=== PATIENT | male | born 2000 | race Caucasian/White ===

== ENCOUNTER 2024-06-03 10:40 | Emergency (ER) | payer BC, SELFPAY ==
--- NOTE | ~2024-06-03 | XR_ITS ---
EXAMINATION: XR chest 2V DATE: 06/03/2024 13:49 INDICATION: Pleuritic right upper back pain TECHNIQUE: PA and lateral views of the chest were obtained. COMPARISON: None FINDINGS: The lungs are clear with no focal airspace opacities, pulmonary edema, pleural effusion or pneumothor ax. The cardiomediastinal silhouette is normal. Visualized bones and soft tissues are unremarkable. IMPRESSION: 1. No acute cardiopulmonary disease. Reviewed, dictated and finalized at location A.
[2024-06-03 11:49] VITALS: BP 139/83; PULSE 61; RESP 20; TEMP 36.4; O2SAT 97
--- NOTE | 2024-06-03 12:49 | ED.BACK ---
HPI - Back Pain/Injury General Chief Complaint: Back Pain/Injury Stated Complaint: back pain Time Seen by Provider: 06/03/24 11:57 History of Present Illness HPI Narrative: Patient is a 23-year-old male presenting with right upper back pain. States that he woke from sleep with severe stabbing pain in his right upper back. Is worsened with a breath. States that he feels scared to take a full breath because it makes the pain worse. No chest pain. States that he just got home from vacation, had a [address] night[address] States that his mom has a history of pulmonary emboli as so this was what he was concerned about. No leg swelling. No injuries. No midline neck or back pain. No numbness or weakness. Related Data Allergies Allergy/AdvReac Type Severity Reaction Status Date / Time No Known Allergies Allergy Verified 06/03/24 11:39 Review of Systems Review of Systems: All systems reviewed & are unremarkable except as noted in HPI and below Exam Narrative: GENERAL: Well-appearing, well-nourished, and in no acute distress. HEAD: Normocephalic, atraumatic. EYES: PERRLA and EOMI. ENT: Grossly unremarkable NECK: Supple. BACK: no midline tenderness, no tenderness over R upper back CHEST: Clear to auscultation. No respiratory distress. HEART: Regular rate and rhythm ABDOMEN: Soft, nontender, nondistended EXTREMITIES: Normal range of motion. No edema. SKIN: Warm, dry, no rash. NEURO: No focal deficits. Alert and oriented x3. PSYCH: Normal mood and affect. Course Vital Signs Vital signs: Vital Signs Temperature 97.6 F 06/03/24 11:49 Pulse Rate 61 06/03/24 11:49 Respiratory Rate 20 06/03/24 11:49 Blood Pressure 139/83 06/03/24 11:49 Pulse Oximetry 97 06/03/24 11:49 Oxygen Delivery Room Air 06/03/24 11:49 Temperature 97.6 F 06/03/24 11:49 Pulse Rate 61 06/03/24 11:49 Respiratory Rate 20 06/03/24 11:49 Blood Pressure 139/83 06/03/24 11:49 Pulse Oximetry 97 06/03/24 11:49 Oxygen Delivery Room Air 06/03/24 11:49 MDM - Back Pain/Injury MDM Narrative Medical decision making narrative: 23-year-old male presenting with right upper back pain that is worsened with deep breathing. Vitals are within normal limits. Exam remarkable for the above. Blood work is unremarkable. D-dimer is undetectable. Chest x-ray with no acute abnormalities. Re-evaluation, the patient states that he is feeling better. Feel he is safe for outpatient management. Will send in for Flexeril, advised Tylenol and ibuprofen. Recommend PCP follow-up. Appropriate return precautions given. Patient is agreeable this plan. Discharged in stable condition. Differential Diagnosis Differential diagnosis: Likely other (Shoulder pain, back pain, muscle spasm, pneumothorax, PE) Medical Records Attestation: I reviewed the patient's medical records. Lab Data Attestation: I reviewed the patient's lab results. 06/03/24 12:58 06/03/24 12:58 Labs: Lab Results 06/03/24 Range/Units 12:58 WBC 8.4 (4.5-10.0) K/mm3 RBC 5.58 (4.6-6.20) M/mm3 Hgb 15.7 (14.0-18.0) g/dL Hct 46.0 (42.0-52.0) % MCV 82.4 (80-100) fl MCH 28.1 (26-34) pg MCHC 34.1 (32-36) g/dl RDW 12.2 (11.5-14.5) % Plt Count 259 (150-375) k/mm3 MPV 9.2 (7.4-10.4) fl Immature Gran % (Auto) 0.1 (0-0.5) % Neut % (Auto) 65.1 (45.5-73.1) % Lymph % (Auto) 25.0 (18.3-44.2) % [place] % (Auto) 8.4 (2.6-8.5) % Eos % (Auto) 1.2 (0-4.4) % Baso % (Auto) 0.2 (0.2-1.2) % Lymph # (Auto) 2.11 (0.9-3.2) K/mm3 [place] # (Auto) 0.7 H (0.1-0.6) K/mm3 Eos # (Auto) 0.1 (0-0.3) K/mm3 Baso # (Auto) 0.0 (0.0-0.1) K/mm3 Abs Immat Gran (auto) 0.01 (0.00-0.031) K/mm3 Absolute Neuts (auto) 5.5 (1.3-6.7) K/mm3 Absolute Nucleated RBC 0.000 (0.0-0.012) K/mm3 Nucleated RBC % 0.0 (0.0-0.2) % D-Dimer < 0.22 (<0.48) ug/mL Sodium 138 (137-145) mmol/L Potassium 4.1 (3.4-5.0) mmol
[2024-06-03 13:04] LABS: Basophils Percent Auto 0.2 % (0.2-1.2); Eosinophils Absolute Auto 0.1 K/mm3 (0-0.3); Eosinophils Percent Auto 1.2 % (0-4.4); Hemoglobin 15.7 g/dL (14.0-18.0); Immature Granulocyte Absolute 0.01 K/mm3 (0.00-0.031); Immature Granulocyte Percent A 0.1 % (0-0.5); Lymphocytes Absolute Auto 2.11 K/mm3 (0.9-3.2); Mean Corpuscular HGB Conc 34.1 g/dl (32-36); Mean Corpuscular Hemoglobin 28.1 pg (26-34); Mean Corpuscular Volume 82.4 fl (80-100); Mean Platelet Volume 9.2 fl (7.4-10.4); Monocytes Absolute Auto 0.7 K/mm3 (0.1-0.6); Monocytes Percent Auto 8.4 % (2.6-8.5); Neutrophils Absolute Auto 5.5 K/mm3 (1.3-6.7); Neutrophils Percent Auto 65.1 % (45.5-73.1); Platelet Count Result 259 k/mm3 (150-375); Red Blood Count 5.58 M/mm3 (4.6-6.20); Red Cell Distribution Width 12.2 % (11.5-14.5); White Blood Count 8.4 K/mm3 (4.5-10.0)
[2024-06-03] MEDS: SODIUM CHLORIDE 0.9% IV 1,000 ML 999 ML IV CONT (13:05)
[2024-06-03] MEDS: CYCLOBENZAPRINE HCL 10 MG TABLET PO (13:06)
[2024-06-03] MEDS: KETOROLAC 15 MG/ML VIAL (*BKC) IV PUSH (13:06)
[2024-06-03] MEDS: ACETAMINOPHEN 500 MG TABLET 1000 MG PO (13:06)
[2024-06-03 13:12] LABS: Anion Gap 9 mmol/L (4-12); Blood Urea Nitrogen 8 mg/dL (9-20); Calcium 9.7 mg/dL (8.4-10.2); Carbon Dioxide 27 mmol/L (22-30); Chloride 102 mmol/L (98-107); Estimated CRCL calculation 140 ml/min; Estimated Glomerular Filt Rate > 60; Glucose 97 mg/dL (65-110); Potassium 4.1 mmol/L (3.4-5.0); Sodium 138 mmol/L (137-145)
[2024-06-03 13:19] LABS: D Dimer < 0.22 ug/mL (<0.48)
== END 2024-06-03 14:58 | disposition home or self-care (01) ==
PROVIDERS: Emergency Provider Emergency Medicine
DX: M54.9 Dorsalgia, unspecified (principal)
CPT/HCPCS: 36415; 71046; 80048; 85025; 85380; 96361; 96374; 99284; A9270; J1885; J7030

== ENCOUNTER 2025-02-04 11:47 | Emergency (ER) | payer BC, SELFPAY ==
[2025-02-04 12:06] VITALS: BP 138/96; PULSE 86; RESP 16; TEMP 36.4; O2SAT 100
--- OUTSIDE RECORDS SUMMARY | 2025-02-04 12:10 | XMS_ITS | Clinical Summary ---
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 [employer] Gender Identity Not on file Sexual Orientation Not on file Plan of Treatment Health Maintenance Due Date Last Done Comments Annual Physical 2002 HPV Vaccines (1 - Male 3-dos e series) 2014 Hepatitis C 2017 DTaP, Tdap and Td Vaccines ( 1 - Tdap) 2018 Hepatitis B Vaccines (1 of 3 - 19+ 3-dose series) 2018 COVID-19 Vaccine ( - 2023-2 5 season) 2024 Meningococcal B Vaccine Aged Out No l onger eligible based on patient's age to complete this topic Meningococcal Vaccine Aged Out No rusty kirk eligible based on patient's age to complete this topic Pneumococcal Vaccine: Pediat rics (0 to 5 Years) and At-Risk Patients (6 to 49 Years) Aged Out No longer eligible b ased on patient's age to complete this topic RSV Immunizations Under 20 Months Aged Out No longer eligible based on patient's age to complete this topic
--- OUTSIDE RECORDS SUMMARY | 2025-02-04 12:10 | XMS_ITS | Continuity of Care Document ---
Author Organization [employer] Address [address] [place] [address] Phone Care Team Providers Care Postdoctoral Scholar Name Role Phone Dario Hannah MD Unavailable Unavailable Allergies, Adverse Reactions, Alerts Substance Reaction Status Criticality No Known Allergies Active No Inform ation Medications Medication Instructions Dosage Effective Dates (start - stop) Status Comments amoxicillin 875 mg-potassium clavulanate 125 mg tablet take 1 tablet by oral route 2 times every day 1 tablet - Active Procedures Procedure Date OFFICE/OUTPATIENT VISIT, EST OFFICE/OUTPATIENT VISIT, EST OFFICE/OUTPATIENT VISIT, EST OFFICE/OUTPATIENT VISIT, NEW OFFICE/OUTPATIENT VISIT, EST RAPID STREP Rapid COVID OFFICE/OUTPATIENT VISIT, EST OFFICE/OUTPATIENT VISIT, EST OFFICE/OUTPATIENT VISIT, EST OFFICE/OUTPATIENT VISIT, EST OFFICE/OUTPATIENT VISIT, EST OFFICE/OUTPATIENT VISIT, EST OFFICE/OUTPATIENT VISIT, EST OFFICE/OUTPATIENT VISIT, EST OFFICE/OUTPATIENT VISIT, EST OFFICE/OUTPATIENT VISIT, EST PREV VISIT, EST, AGE 12-17 OFFICE/OUTPATIENT VISIT, EST OFFICE/OUTPATIENT VISIT, EST URINALYSIS NONAUTO W/O SCOPE OFFICE/OUTPATIENT VISIT, EST OFFICE/OUTPATIENT VISIT, EST OFFICE/OUTPATIENT VISIT, EST OFFICE/OUTPATIENT VISIT, EST OFFICE/OUTPATIENT VISIT, EST OFFICE/OUTPATIENT VISIT, EST OFFICE/OUTPATIENT VISIT, EST OFFICE/OUTPATIENT VISIT, EST OFFICE/OUTPATIENT VISIT, EST OFFICE/OUTPATIENT VISIT, EST OFFICE/OUTPATIENT VISIT, EST OFFICE/OUTPATIENT VISIT, EST Advance Directives Directive Yes / No Effective Date File Name No Information Encounters Encounter Description Practice Location Reason(s) For Visit Diagnoses Date Provider Providers Copied on Encounter OFFICE/OUTPA TIENT VISIT, [facility], [address] [place] [address], [facility], tel:[phone] [facility] COUGH (chief complaint)S ORE THROAT (chief complaint)H PI (chief complaint) Acute pharyngitis 3 Camden Bishop. [address] [place] [address], [place]. tel: [phone] OFFICE/OUTPA TIENT VISIT, [facility], [address] [place] [address], [facility], tel: [phone] [facility] COUGH (chief complaint)H PI (chief complaint) EpistaxisEnla rged lymph nodes, unspecified 3 Camden Bishop. [address] [place] [address], [place]. tel: OFFICE/OUTPA TIENT VISIT, [facility], [address] [place] [address], [facility], [place] tel:[phone] [facility] CHECK UP (chief complaint) Chest wall discomfortEnl arged lymph nodes, unspecified 2 Camden Bishop. [address] [place] [address], [address], [place]. tel:[phone] OFFICE/OUTPA TIENT VISIT, [facility], [address] [place] [address], [facility], [place] [phone] [facility] CHEST DISCOMFORT (chief complaint)S OB (chief complaint)C HEST POPPING (chief complaint) Chest wall discomfort Jun- 2 Elkin Aguayo. [address] [place] [address], [facility], . tel:[phone] OFFICE/OUTPA TIENT VISIT, [facility], [address] [place] [address], [facility], [phone] [facility] EST CARE (chief complaint)H PI (chief complaint) Enlarged lymph nodes, unspecified 2 Camden Bishop. [address] [place] [address], [facility], . tel:[phone] OFFICE/OUTPA TIENT VISIT, [facility], [address] [place] [address], [facility], tel:[phone] [facility] covid sx (chief complaint) Acute pharyngitis, unspecifiedCo ntact With And (suspected) Exposure To COVID-19Acute upper respiratory infection, unspecified 1 Edward Atwood. [address] [place] [address], [facility] [place], . [phone] OFFICE/OUTPA TIENT VISIT, [facility], [address] [place] [address], [facility], [phone] [facility] BUG IN EAR (chief complaint) Foreign body in ear, unspecified ear, subsequent encounter 1 Edward Atwood. [address] [place] [address], [facility] [place], . tel:[phone] OFFICE/OUTPA TIENT VISIT, [facility], [address] [place] [address], [facility], [place] [phone] [facility] CHECK UP (chief complaint) Painful breathingDOE (dyspnea on exertion) 1 Ronaldo Edwards. [address] [place] [address], [facility] [place], . tel:[phone] OFFICE/OUTPA TIENT VISIT, [facility], [address] [place] [address], [facility], tel: [phone] [facility] Sore throat (chief complaint) Acute pharyngitis, unspecified etiologyAcute sinusitis 9 Lorenzo Vázquez. [address] [place] [address], [address] [place] [address]. tel: [phone] OFFICE/OUTPA TIENT VISIT, [facility], [address] [place] [address], [facility], tel: [phone] [facility] Sore throat (chief complaint) Acute pharyngitis, unspecified etiologyAcute maxillary sinusitis, unspecified 9 Mingo Johnson. [address] [place] [address]. tel: [phone] OFFICE/OUTPA TIENT VISIT, [facility], [address] [place] [address], [facility], tel: [phone] [facility] Sore throat (chief complaint) Acute pharyngitis, unspecified etiology 0 8 Lorenzo Vázquez. [address] [place] [address], [facility], . tel: [phone] OFFICE/OUTPA TIENT VISIT, [facility], [address] [place] [address], [facility], tel: [phone] [facility] FELL JUMPMING FOR FRISBI (chief complaint)C OLLIDED WITH ANOOTHER CHILD (chief complaint) Unsp injury of unsp msl/tnd at ank/ft level, r foot, initUnspecifi ed sprain of right foot, initial encounter 8 Elkin Aguayo. [address] [place] [address], [facility], . tel: [phone] OFFICE/OUTPA TIENT VISIT, [facility], [address] [place] [address], [facility], tel: [phone] [facility] SORE THROAT (chief complaint) Sore throatRhiniti s, unspecified type 2 8 Lorenzo Vázquez. [address] [place] [address], [address], [place]. tel:[phone] OFFICE/OUTPA TIENT VISIT, [facility], [address] [place] [address], [address], [place] tel:[phone] [facility] Cough. (chief complaint)S ore throat (chief complaint) Lymphadenopat hyInfluenza B 6201 7 Corrina Yecenia. [address] [place], [address], [place]. tel:[phone] OFFICE/OUTPA TIENT VISIT, [facility], [address] [place] [address], [address], [place] tel:[phone] [facility] Cough (chief complaint) Influenza 2 7 Annalisa Funes. [address] [place] [address], [address], [place]. tel:[phone] PREV VISIT, [facility], AGE 12-17 [facility], [address] [place] [address], [address], [place] tel:[phone] [facility] shot/sports phys. (chief complaint) Encounter for examination for participation in sport 7 Erica Aimee. [address] [place] [address], [address], [place]. tel:[phone] OFFICE/OUTPA TIENT VISIT, [facility], [address] [place] [address], [address], [place] tel:[phone] [facility] Sore throat (chief complaint) Left otitis media, unspecified chronicity, unspecified otitis media type 0 7 Corrina Yecenia. [address] [place], [address], [place]. tel:[phone] OFFICE/OUTPA TIENT VISIT, [facility], [address] [place] [address], [address], [place] tel:[phone] [facility] Sore throat (chief complaint) Otitis media, unspecified, left ear 9201 6 Corrina Yecenia. [address] [place], [address], [place]. tel:[phone] [facility], [address] [place] [address], [address], [place] tel:[phone] [facility] sports physical (chief complaint) Sports physical exam 6 Ronaldo Edwards. [address] [place] [address], [facility] [place], [place]. tel:[phone] OFFICE/OUTPA TIENT VISIT, [facility], [address] [place] [address], [facility], tel:[phone] [facility] TOE INJURY (chief complaint) Ingrown nailIrritant contact dermatitis due to plants, except food 6 Edward Atwood. [address] [place] [address], [facility] [place], [place]. tel:[phone] OFFICE/OUTPA TIENT VISIT, [facility], [address] [place] [address], [facility], tel:[phone] [facility] Cold symptoms (chief complaint) AnemiaAcute upper respiratory infection, unspecified 6 Edward Atwood. [address] [place] [address], [facility] [place], [place]. tel:[phone] OFFICE/OUTPA TIENT VISIT, [facility], [address] [place] [address], [facility], [place] tel: [phone] [facility] Sore throat (chief complaint) Sore throat 5 Salbador Almaguer. [address] [place], [address]. tel:[phone] OFFICE/OUTPA TIENT VISIT, [facility], [address] [place] [address], [facility], [place] tel: [phone] [facility] Sports PE (chief complaint) General medical exam for sports competition 5 Ronaldo Edwards. [address] [place] [address], [facility] [place], [place]. tel:[phone] OFFICE/OUTPA TIENT VISIT, [facility], [address] [place] [address], [facility], [place] tel:[phone] [facility] ring worm (chief complaint) Tinea corporisAller gic rhinitis 5 Ronaldo Edwards. [address] [place] [address], [facility] [place], . tel:[phone] OFFICE/OUTPA TIENT VISIT, [facility], [address] [place] [address], [facility], tel: [phone] [facility] rash (chief complaint) ImpetigoTinea corporis Feb-2 3 5 No Information OFFICE/OUTPA TIENT VISIT, [facility], [address] [place] [address], [facility], tel: [phone] [facility] Cold symptoms (chief complaint) URI, acute 6 5 No Information OFFICE/OUTPA TIENT VISIT, [facility], [address] [place] [address], [facility], tel: [phone] [facility] Cough (chief complaint)F ever (chief complaint) URI, acuteAllergic rhinitis Jul-0 4 Erica Aimee. [address] [place] [address], [facility], . tel:[phone] OFFICE/OUTPA TIENT VISIT, [facility], [address] [place] [address], [facility], tel: [phone] [facility] SORE THROAT (chief complaint) URI, acute 4 Erica Aimee. [address] [place] [address], [facility], . tel:[phone] OFFICE/OUTPA TIENT VISIT, [facility], [address] [place] [address], [facility], tel: [phone] [facility] COLD SYMPTOMS (chief complaint) Bronchitis, AcuteAcute maxillary sinusitis 4 Longmeyer Elizabeth. [address] [place] [address], [place]. tel:[phone] OFFICE/OUTPA TIENT VISIT, [facility], [address] [place] [address], [facility], tel:[phone] [facility] cough (chief complaint) Bronchitis, Acute 3 No Information OFFICE/OUTPA TIENT VISIT, [facility], [address] [place] [address], [facility], tel:[phone] [facility] wheezing (peds) (chief complaint)c ough (chief complaint)c old symptoms (chief complaint) Allergy, unspecified, not elsewhere classifiedUpp er Respiratory Infection, AcuteRight otitis media [address], [facility], . tel:[phone] Family History Family Member Type Diagnosis Age At Onset Mother Problem (finding) PE Father Problem (finding) No Family hist ory of No history of Diabetes mellitus Mother Problem (finding) No Family hist ory of No history of Cancer Mother Problem (finding) No Family hist ory of No history of Diabetes mellitus Father Problem (finding) No Family hist ory of No history of Cancer Immunizations Vaccine Date Status Comments meningococcal ACWY vaccine, unspecified formulation administered Source: Other Re gistry hepatitis A vaccine, pediatric/adolescent dosage, 2 dose schedule administered Source: Other Regist ry varicella virus vaccine administered Sour ce: Other Registry Meningococcal, MCV4, unspeci fied conjugate formulation(groups A, C, Y and W-135) administered Source: Other Regist ry hepatitis A vaccine, pediatric/adolescent dosage, 2 dose schedule administered Source: Other Regist ry Tdap administered Source: Other R egistry diphtheria, tetanus toxoids and acellular pertussis vaccine administered Source: Othe r Registry poliovirus vaccine, inactivated administe red Source: Other Registry measles, mumps and rubella v irus vaccine administered Source: Other Regist ry diphtheria, tetanus toxoids and acellular pertussis vaccine administered Source: Othe r Registry varicella virus vaccine administered Sour ce: Other Registry hepatitis B vaccine, pediatr ic or pediatric/adolescent dosage administered Source: Othe r Registry poliovirus vaccine, inactivated administe red Source: Other Registry measles, mumps and rubella v irus vaccine administered Source: Other Regist ry Hib (HbOC) administered Source: Other R egistry diphtheria, tetanus toxoids and acellular pertussis vaccine administered Source: Othe r Registry diphtheria, tetanus toxoids and acellular pertussis vaccine administered Source: Othe r Registry hepatitis B vaccine, pediatr ic or pediatric/adolescent dosage administered Source: Othe r Registry poliovirus vaccine, inactivated administe red Source: Other Registry Hib (HbOC) administered Source: Other R egistry DTaP (younger than 7 yrs) administered So urce: Other Registry Hep B (ped/adol, 3 dose) administered Meseret rce: Other Registry poliovirus vaccine, inactivated administe red Source: Other Registry Hib (HbOC) administered Source: Other R egistry Payers Payer name Insurance type Covered green party ID Authoriza tion(s) [facility] [id number] Social History Type Description Quantity Date Captured Comments Alcohol Use Details beer 1 beer occasionally 2022 Caffeine Use Details soda and coffee > 32oz per day Tobacco Use Status Never smoked tobacco 2022 Smoking Status Never smoker Sex Male Vital Signs Date / Time: Height Weight BMI Pulse Rate Blood Pressure Temperature Respiratory Rate Body Surface Area Head Circumference Head Circ. Percentile Wt./Balbir. Percentile BMI percentile Pulse Ox Inhaled Ox 3:10 PM 69.00 in 70.579 kg (155.60 lbs) 22.9 8 kg/m eter (2) 92 /min 122/85 mm[Hg] 99.70 F 20 /min 96 % Chief Complaint And Reason For Visit From encounter dated '12/16/2022 13:03'. COUGH (chief complaint) SORE THROAT (chief complaint) HPI (chief complaint). Description: Patient with symptoms for approximately 4 days. Worsening sore throat over this time. No definite exposure to strep that he knows of. Positive fevers and chills with temps greater than 100. Positive cough producing green sputum. Positive postnasal drainage. Positive head congestion and frontal headache. Mild nausea. He has been taking [id number] Advil. Reason For Referral Reason For Referral No Information Plan Of Treatment Date Type Action Status Goal Influenza vaccine. Due on Ma due Goal Td vaccine. Due on due Goal Depression scree maryam. Due on due Goal Unhealthy drug u se screening. Due on due Goal Tdap due Goal Hepatitis C scre ening. Due on due Goal Td vaccine. Due on due Goal Influenza vaccine. Due on due Goal Depression scree maryam. Due on due Goal Tdap due Goal Td vaccine. Due on due Goal Influenza vaccine. Due on No due Goal Tdap due Goal Depression scree maryam. Due on due Goal Td vaccine. Due on due Goal Depression scree maryam. Due on due Goal Tdap due Goal Influenza vaccine. Due on Oc due Goal Tdap due Goal Td vaccine. Due on due Goal Depression scree maryam. Due on due Goal Influenza vaccine. Due on Au due Referral Ordered: US XTR NON-VASC LMTD Left neck ordered Referral Ordered: X-RAY EXAM CHEST 2 VIEWS HEARS POPPING NOISE- MID ordered Referral Ordered: X-RAY EXAM OF FOOT ordered Referral Ordered: CHEST X-RAY - 2 View Frontal Lateral Bilateral ordered Patient Education Learning About the Safe Use of Antibi~ completed Patient Education Viral Respiratory Infec tion: Care Ins~ completed Patient Education Object in the Ear: Care Instructions completed Patient Education Shortness of Breath: Ca re Instructions completed Patient Education Sore Throat: After Your Visit completed Patient Education Sinus Infection Sinus itis Sinus i~ completed Patient Education Sore Throat Pharyngit is Sore Thro~ completed Future Order: Lab Order RAPID ST REP ([id number]), Sent on: Sent History Of Present Illness Encounter Date Complaint History Of Prese nt Illness COUGH HPI Patient with sym ptoms for approximately 4 days. Worsening sore throat over this time. No definite exposure to strep that he knows of. Positive fevers and chills with temps greater than 100. Positive cough producing green sputum. Positive postnasal drainage. Positive head congestion and frontal headache. Mild nausea. He has been taking [id number] Advil. SORE THROAT HPI Patient states f or the last 3 days he has noticed some blood in his saliva when he spits it out in the morning. He does not notice any blood in any other time of the day. He has had some mild postnasal drainage. He has had 2 nosebleeds this past month which is unusual for him. No unusual headaches. No fatigue. He continues to have the swollen lymph nodes in the left posterior neck which she states are about the same. He just seems very concerned about the lymph nodes and now the blood. He states he is googled it and is concerned he may have some sort of a blood cancer. No abnormal bruising or rash. No hematuria. No blood in his stools. COUGH Additional infor vicky: Has blood in sputum when getting up in am. CHECK UP Patient here jus t following up from his walk-in clinic visit a month ago. His chest symptoms have completely resolved. Lymph node in the back part of his neck is down to very small size right now. He has no new concerns or complaints. He was told by his last doctor that he might need blood work every year but given his good health and no chronic illnesses I do not see why he would need any blood work and this was explained to him. CHEST POPPING PT PRESENTS WITH CHEST POPPING FOR ABOUT ONE YEAR. ALSO C/O EPIGASTRIC PAIN AND INDIGESTION SINCE TUESDAY. CHEST DISCOMFORT The patient pre sents with a complaint of CHEST DISCOMFORT. The symptoms began 3 days ago. Additional information: PT STATES THAT HE HAS HAD CHEST TIGHTNESS AND DISCOMFORT SINCE TUESDAY. SOB PT PRESENTS WITH SOB SINCE TUESDAY. CHEST POPPING (comments) HX OF VAPING, LAST- VAPE WAS ONE WEEK [employer] [facility] [employer] [facility] LYMPHNODE HAS NOT CHANGED IN SIZE HPI Patient is here to establish care. He does not really have a PCP he has improved in his overall health. He has no chronic medical problems and is on no medications. Patient did not use a vaping device but quit about 1 year ago. He does occasionally smoke marijuana.No significant family history except does have a grandfather had leukemia.Patient is here to have a nodule on his posterior left neck checked. The present for about 3 to 4 months. It has not increased in size. It is not tender. It has not moved around. He has no lumps or nodules anywhere else in his neck, armpits or groin area.He otherwise feels completely fine. He has no fatigue. He has no unusual shortness of breath. No problems with exertion. It simply basketball for 3 hours the other day with no problems. No GI symptoms. No urinary or bowel complaints. No rashes or skin lesions. EST CARE PT PRESENTS TO [facility].PT STATES THAT HE HAS A KNOT JUST TO THE LEFT OF CENTER ON HIS UPPER NECK. THINKS HE HAS HAD IT ABOUT 4 MONTHS. covid sx Pt presents wit complaints of sinus pressure, cough, sore throat, and fatigue since yesterday. Pt is not vaccinated. Pt states he possible had positive exposure, but unsure. BUG IN EAR Pt. was playing golf Tuesday and felt and bug fly into his left ear. Went to the ER and they numbed his ear, could not get anything out, then tried flushing the insect out. The doctor went in with forceps and still did not get the bug out. His ear would be bloody when he would rinse out the eardrops. That stopped yesterday (Tuesday) CHECK UP Patient has been screened for CoVid 19. He answered no to all the questions asked. His temperature when initially evaluated was ----98.1Patient states that about a week ago, he was playing basketball with friends. He suddenly had problems with painful, somewhat burning sensation in his chest when he takes deep breaths. Patient states that he rested and the symptoms have abated. Patient has a well-known history of allergic rhinitis with several episodes of upper respiratory infection in the past. He was never diagnosed to have asthma. He had use an albuterol inhaler in the past. Patient also noted some dyspnea on exertion recently. Denies any chest pain, no diaphoresis, no other symptoms. He is a healthy young man with no history of cigarette use, no history of asthma. We discussed obtaining a chest x-ray and pulmonary function tests with methacholine challenge. Albuterol inhaler was refilled on today's visit. Sore throat Sore throat (comments) Brian jackson presents with c/o worsening sore throat and pain with swallowing for the past 4 days. He was seen in our clinic on 07/23/2019 and prescribed Amoxicillin 500mg PO BID. He did not start the course until 07/26/19, and has been taking it since. He has had fever (Tmax 101), cough, nasal congestion, headache, and fatigue. He has had no vomiting or diarrhea. He is taking OTC Mucinex DM for the cough and congestion, and feels this is slightly helping. Sore throat Onset: 1 Day. Sy mptoms are associated with history of allergies. Symptoms are not associated with exposure to strep and history of asthma. Associated symptoms include chills/rigors, cough, fatigue and nasal congestion. Pertinent negatives include fever, otalgia or wheezing. Sore throat Onset: 1 Day ago . The severity of the problem is mild and has worsened. The symptoms are persistent. Symptoms are not associated with exposure to strep, history of allergies, history of asthma, recent cold, recent travel, sick contacts at school, sick family member or smoker. Aggravating factors include exertion and lying down. Symptoms are not aggravated by allergens, cold air or smoke. Denies relieving factors. Associated symptoms include cough, fatigue, headache, nasal congestion, pharyngitis, postnasal drainage and sinus pressure. Pertinent negatives include chills/rigors, decreased appetite, decreased fluid intake, decreased urine output, difficulty sleeping, dyspnea, facial pain, fever, hemoptysis, myalgia, otalgia, rash, rhinitis, sputum, tooth pain and wheezing. FELL JUMPMING FOR FR ISBI (comments) HAS RIGHT FOOT PAIN/SWELLINGINJURY OCCURED ONE HR PTANO ACHILLES,KNEE OR HIP PAIN FELL JUMPMING FOR FRISBI Pt pres ents with right foot injury that took place participating in physical education at [facility]. The incident occurred about 12:30PM today. Pt states he jumped to catch a frisbee and his right foot got caught between two other players. Pt states he heard multiple pops coming from the right foot. Pt states he cannot put any weight on his right foot and has decreased ROM. There is some swelling to the right foot, but no bruising yet. COLLIDED WITH ANOOTHER CHILD SORE THROAT (comments) Brian jackson presents with c/o sore throat that began yesterday. He also reports runny nose. Denies cough, headache, fever, and chills. States he was exposed to strep throat this week at school. SORE THROAT Onset: 1 Day ago . The severity of the problem is mild and has worsened. The symptoms are persistent. Symptoms are associated with sick contacts at school. Symptoms are not associated with exposure to strep, history of allergies, history of asthma, recent cold, recent travel, sick family member or smoker. Denies aggravating factors. Denies relieving factors. Associated symptoms include pharyngitis. Pertinent negatives include chills/rigors, cough, decreased appetite, decreased fluid intake, decreased urine output, difficulty sleeping, dyspnea, facial pain, fatigue, fever, headache, hemoptysis, myalgia, nasal congestion, otalgia, postnasal drainage, rash, rhinitis, sinus pressure and wheezing. Sore throat Cough. Patient states patrick kahn has been treated with Tamiflu about 3 weeks ago but is still not feeling well. He has a sore throat and sinus pain with cough and congestion. Also fatigue. Cough Onset: 1 day ago . The patient describes the cough as productive. It occurs persistently. The problem has become gradually worse. There are no aggravating factors. There are no relieving factors. Associated symptoms include chills, cough, fatigue, fever, nasal congestion and post-nasal drainage. Pertinent negatives include dyspnea, dyspnea on exertion, epistaxis, heartburn, hemoptysis, hoarseness, night sweats, pleuritic pain, rhinitis, rhinorrhea, sinus pressure, sore throat, weight loss and wheezing. The patient has a history of allergies. The patient does not have a history of asthma. shot/sports phys. pt presnts elizabeth lockwood for school physicalThe patient presents for his sports physical today. His mother has his vaccine record with him she thinks he is due for a meningococcal booster. His immunization record will be updated in the system. Sore throat Onset: 2 Days ag o. The severity of the problem is moderate and has worsened. The symptoms are persistent. Symptoms are associated with history of allergies. Symptoms are not associated with exposure to strep, history of asthma, sick contacts at school, sick family member or smoker. Denies aggravating factors. Denies relieving factors. Associated symptoms include difficulty sleeping, headache, otalgia (left), pharyngitis and postnasal drainage. Pertinent negatives include chills/rigors, cough, decreased appetite, decreased fluid intake, decreased urine output, dyspnea, facial pain, fatigue, fever, hemoptysis, myalgia, nasal congestion, rash, rhinitis, sinus pressure, sputum, tooth pain and wheezing. Sore throat (comments) Pt presen ts to the clinic with complaints of a sore throat. PT states that the sx have been ongoing for approx 2 days. Pt denies fever, chills, n,v,d. Pt states he has not taken anything for the pain. Pt denies neck pain or body aches. PT denies being around anyone that is ill at this time. Sore throat Onset: 5 Days ag o. Symptoms are not associated with exposure to strep, sick contacts at school or sick family member. Denies aggravating factors. Denies relieving factors. Associated symptoms include fatigue, headache and pharyngitis. Pertinent negatives include chills/rigors, cough, fever, myalgia, nasal congestion, otalgia, postnasal drainage, rash and sinus pressure. sports physical Patient is here for a sport physical A very active individual, 15 yo M. Has good diet and exercise. Has good exercise tolerability, stamina. Denies any abnormal shortness of breath, palpitation nor syncopal episodes. Past medical, social and family history reviewed. TOE INJURY Pt presents with his mother today with complaints of a left big toe injury. Pt states his toe got stepped on a few weeks ago and the nail got pushed into the side of the toe. Pt states the toe is swollen, red, and painful. Cold symptoms (comments) PT atte mpted to given blood within the last month and was deferred. His mother would like his hemoglobin to be checked . he also complains that he is frequently tired. Cold symptoms Onset: 2 Days ag o. The severity of the problem is moderate and has worsened. Symptoms are associated with sick family member. Denies aggravating factors. Denies relieving factors. Associated symptoms include cough (cough is productive), decreased appetite, fatigue, pharyngitis and postnasal drainage. Pertinent negatives include decreased fluid intake, decreased urine output, fever, headache, nasal congestion, otalgia and rhinitis. Additional information: Pt also had one episode of diarrhea last night. Sore throat Onset: 1 Week ag o. The severity of the problem is moderate and has not changed. The symptoms are persistent. Symptoms are associated with exposure to strep, recent cold and sick family member. Symptoms are not associated with history of allergies, history of asthma, recent travel, sick contacts at daycare or sick contacts at school. Denies aggravating factors. Denies relieving factors. Associated symptoms include fatigue, nasal congestion, pharyngitis and postnasal drainage. Pertinent negatives include chills/rigors, cough, decreased appetite, decreased fluid intake, decreased urine output, difficulty sleeping, dyspnea, facial pain, fever, headache, hemoptysis, myalgia, otalgia, rash, rhinitis, sinus pressure, tooth pain and wheezing. Additional information: grandma just here yest. has been exposed to her. thinks that she might have had strep. Sports PE Has been wearing glasses for a while. ring worm Pt here to see D r for rash that was present on lt posterior rib area. Had several spots yesterday and mother applied Nystatin Cream. Today redness is gone and light caceres residual present. Still c/o itching.Rash had seemed improved but mother noted some red areas again on his back yesterdayHas several episodes of benign oral ulcers. we discussed use of Listerine or any product as such to hopefully dimnish the occurence of his Canker sores. rash The patient pres ents for rash. This episode began 1 month ago. Affected area(s) include back. The patient describes the affected area(s) as itchy. Associated symptoms include pruritus and urticaria. Additional information: Pt states notice 1 spot resembling pimple and later spread. Started while doing wrestling. Several small round areas that appear to be drying. Cold symptoms Onset: 4 Days ag o. Symptoms are associated with history of allergies. Denies aggravating factors. Denies relieving factors. Associated symptoms include fever (maximum temperature is 100. F), nasal congestion, pharyngitis, postnasal drainage and rhinitis. Fever Onset: 4 days ag o. Duration is 4 Days. Maximum temperature is 99.50 F. The problem has worsened. The frequency of the symptom is intermittent. Cough Onset: 4 days ag o. Severity: 8. The patient's mother describes the cough as productive (of yellow sputum). It occurs persistently. The problem has become gradually worse. Associated symptoms include fatigue and fever. SORE THROAT Onset: 3 Days. T he severity of the problem is moderate . and has worsened. The symptoms are persistent. Associated symptoms include chills/rigors, cough, fatigue, fever and headache. COLD SYMPTOMS Onset: 2 Days. S ymptoms are associated with sick family member. Denies aggravating factors. Associated symptoms include cough, fatigue, fever, nasal congestion and wheezing. Pertinent negatives include chills/rigors, decreased appetite, decreased fluid intake, difficulty sleeping and headache. Additional information: sore throat. Functional Status Date Functional Assessmen t No Information Instructions Date Instruction Additional Infor vicky Rest and increase fl uid [id number] Tylenol or Advil for fever reductionStart Augmentin 875 mg twice a day for 10 daysFollow-up in 5 to 7 days if no improvement or symptoms worsen Related to Acute pharyngitis Check CBC, CMPSet up U/S [facility] N[facility] anything suspicious, will send for bxOTC [place] Related to Epistaxis ResolvedF/U as neede dNo labs needed at this time Related to Chest wall discomfort Continue to monitor Related to E nlarged lymph nodes, unspecified CXR- IS NEG Related to Chest wall discomfort OBSERVE FOR WORSENIN G OR PERSISTENT SYMPTOMS Related to Chest wall discomfort AVOID VAPING- TAKE T YLENOL/IBUPROFEN FOR PAIN Related to Chest wall discomfort Will just monitor fo r now. If enlarged or any new lymph nodes enlarge, we will check CBC and set up U/S. Related to Enlarged lymph nodes, unspecified Increase fluids Related to Acute upper respiratory infection, unspecified Observe for persiste nt or worsening symptoms Related to Acute upper respiratory infection, unspecified If not improved by d ay 7-10 call the clinic Related to Acute upper respiratory infection, unspecified Tylenol/Motrin as ne eded for fever/discomfort. Related to Acute upper respiratory infection, unspecified OTC cough cold medications as ne eded Related to Acute upper respiratory infection, unspecified Humidifier to the [facility] Related to Acute upper respiratory infection, unspecified Educated that antibi otics are not prescribed for viral infections. Related to Acute upper respiratory infection, unspecified tylenol/motrin as needed Related to Foreign body in ear, unspecified ear, subsequent encounter continue with abx gt ts as prescribed in the ER Related to Foreign body in ear, unspecified ear, subsequent encounter Follow up in one wee k sooner if symptoms persist Related to Foreign body in ear, unspecified ear, subsequent encounter Increase fluid intak e, rest, antipyretics for fever Related to SNIDER (dyspnea on exertion) Use medications as i nstructed. Observe for side effect Related to SNIDER (dyspnea on exertion) Observe for worsenin g signs and symptoms Related to SNIDER (dyspnea on exertion) Observe for s/s of e mergency. Go to ER if this occurs Related to Painful breathing Recommend gargling w ith warm salt water Related to Acute pharyngitis, unspecified etiology Acetaminophen or ibu profen for fever/ pain Related to Acute pharyngitis, unspecified etiology Rest. Drink plenty o f water. Stop Amoxicillin. Start Cefdinir. Related to Acute pharyngitis, unspecified etiology Rapid Strep negative . We will await the culture and amend the plan of care Related to Acute pharyngitis, unspecified etiology Follow up in clinic for any new/ worsening symptoms. Related to Acute pharyngitis, unspecified etiology Continue allergy tab let and nasal spray Related to Acute sinusitis Tylenol or Ibuprofen for fever or pain Related to Acute sinusitis Mucinex DM + Sudafed for cough relief, mucous, and congestion Related to Acute sinusitis Viral pharyngitis- P francisco is to treat supportively at this time. Gargle with warm salt water, increase fluid intake, and use OTC throat lozenges as needed. Follow up with PCP for any worsening ongoing symptoms. Related to Acute pharyngitis, unspecified etiology Adult Sinusitis-- St art antibiotic as directed. Take with food and may add yogurt or probiotic if stomach upset or loose stools. Supportive measures discussed, including warm steam from the shower. sinus rinses, warm compresses applied to sinuses, and use a cool mist humidifier in the bedroom.Follow up with PCP for any worsening or ongoing symptoms. Related to Acute maxillary sinusitis, unspecified Recommend gargling, take medication as prescribed , f/u with PMD Related to Acute pharyngitis, unspecified etiology Patient instructed o n use of saline sprays.take mediation as prescribed Related to Acute maxillary sinusitis, unspecified f/u with pmd. Related to Acute maxillary sinusitis, unspecified Rest. Drink plenty of water. Rel ated to Acute pharyngitis, unspecified etiology Recommend gargling w ith warm salt water Related to Acute pharyngitis, unspecified etiology Acetaminophen or ibu profen for fever/ pain [id number]|2025-02-04 14:33:00|2025-02-04 14:33:00|XMS_ITS|DREG SULTANA|External Medical Summaries|[id number]|" Clinical Summary Created on: February 04, 2025 Brian Gustafson : 2000 Sex: Male Author Organization [facility] Address [address] [place] [id number] Care Team Providers Care Postdoctoral Scholar Name Role Phone Unavailable Primary Care Provider Unavailabl e Social History Tobacco Use Types Packs/Day Years Used Date Smoking Tobacco: Never Assessed Sex and Gender Information Value Date Recorded Sex Assigned at Not on file Legal 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
[2025-02-04 12:48] LABS: Add Urine Microscopic? YES; Appearance Urine Turbid (Clear); Bacteria Urine None Seen /hpf; Bilirubin Urine Negative (Negative); Blood Urine Negative (Negative); Color Urine Yellow (Yellow); Glucose Urine UA Negative (Negative); Ketones Urine Negative (Negative); Leukocyte Esterase Ur Negative LEU/UL (Negative); Nitrate Urine Negative (Negative); Non Pathogenic Casts 0-2; Protein Urine Negative (Negative); RBC Urine 0-2 /hpf (0-2); Specific Grav Ur 1.016 (1.001-1.035); Squamous Epithelial Cell Urine None Seen /hpf (Few); Urobilinogen Urine 0.2 mg/dL (<2.0); WBC Urine 0-5 /hpf (0-3)
--- OUTSIDE RECORDS SUMMARY | 2025-02-04 14:33 | XMS_ITS | Continuity of Care Document ---
Author Organization [employer] Address [address] [place] [address] Phone Care Team Providers Care Distributor Advertising Material Name Role Phone Dario Hannah MD Unavailable [...] Providers Copied on Encounter OFFICE/OUTPA TIENT VISIT, [facility], [address] [place] [address], [facility], tel:[phone] [facility] COUGH (chief complaint)S ORE THROAT (chief complaint)H PI (chief complaint) Acute pharyngitis 3 Camden Bishop. [address] [place] [address], [place]. tel: [phone] OFFICE/OUTPA TIENT VISIT, [facility], [address] [place] [address], [facility], tel: [phone] [facility] COUGH (chief complaint)H PI (chief complaint) EpistaxisEnla rged lymph nodes, unspecified 3 Camden Bishop. [address] [place] [address], [place]. tel: OFFICE/OUTPA TIENT VISIT, [facility], [address] [place] [address], [facility], [place] tel:[phone] [facility] CHECK UP (chief complaint) Chest wall discomfortEnl arged lymph nodes, unspecified 2 Camden Bishop. [address] [place] [address], [address], [place]. tel:[phone] OFFICE/OUTPA TIENT VISIT, [facility], [address] [place] [address], [facility], [place] [phone] [facility] CHEST DISCOMFORT (chief complaint)S OB (chief complaint)C HEST POPPING (chief complaint) Chest wall discomfort Jun- 2 Elkin Aguayo. [address] [place] [address], [facility], . tel:[phone] OFFICE/OUTPA TIENT VISIT, [facility], [address] [place] [address], [facility], [phone] [facility] EST CARE (chief complaint)H PI (chief complaint) Enlarged lymph nodes, unspecified 2 Camden Bishop. [address] [place] [address], [facility], . tel:[phone] OFFICE/OUTPA TIENT VISIT, [facility], [address] [place] [address], [facility], tel:[phone] [facility] covid sx (chief complaint) Acute pharyngitis, unspecifiedCo ntact With And (suspected) Exposure To COVID-19Acute upper respiratory infection, unspecified 1 Edward Atwood. [address] [place] [address], [facility], . [phone] OFFICE/OUTPA TIENT VISIT, [facility], [address] [place] [address], [facility], [phone] [facility] BUG IN EAR (chief complaint) Foreign body in ear, unspecified ear, subsequent encounter 1 Edward Atwood. [address] [place] [address], [facility], . tel:[phone] OFFICE/OUTPA TIENT VISIT, [facility], [address] [place] [address], [facility], [place] [phone] [facility] CHECK UP (chief complaint) Painful breathingDOE (dyspnea on exertion) 1 Ronaldo Edwards. [address] [place] [address], [facility], . tel:[phone] OFFICE/OUTPA TIENT VISIT, [facility], [address] [place] [address], [facility], tel: [phone] [facility] Sore throat (chief complaint) Acute pharyngitis, unspecified etiologyAcute sinusitis 9 Lorenzo Vázquez. [address] [place] [address], [address] [place] [address]. tel: [phone] OFFICE/OUTPA TIENT VISIT, [facility], [address] [place] [address], [facility], tel: [phone] [facility] Sore throat (chief complaint) Acute pharyngitis, unspecified etiologyAcute maxillary sinusitis, unspecified 9 Mingo Johnson. [address] [place] [address]. tel: [phone] OFFICE/OUTPA TIENT VISIT, [facility], [address] [place] [address], [facility], tel: [phone] [facility] Sore throat (chief complaint) Acute pharyngitis, unspecified etiology 0 8 Lorenzo Vázquez. [address] [place] [address], [facility], . tel: [phone] OFFICE/OUTPA TIENT VISIT, [facility], [address] [place] [address], [facility], tel: [phone] [facility] FELL JUMPMING FOR FRISBI (chief complaint)C OLLIDED WITH ANOOTHER CHILD (chief complaint) Unsp injury of unsp msl/tnd at ank/ft level, r foot, initUnspecifi ed sprain of right foot, initial encounter 8 Elkin Aguayo. [address] [place] [address], [facility], . tel: [phone] OFFICE/OUTPA TIENT VISIT, [facility], [address] [place] [address], [facility], tel: [phone] [facility] SORE THROAT (chief complaint) Sore throatRhiniti s, unspecified type 2 8 Lorenzo Vázquez. [address] [place] [address], [address], [place]. tel:[phone] OFFICE/OUTPA TIENT VISIT, [facility], [address] [place] [address], [address], [place] tel:[phone] [facility] Cough. (chief complaint)S ore throat (chief complaint) Lymphadenopat hyInfluenza B 6201 7 Corrina Yecenia. [address] [place], [address], [place]. tel:[phone] OFFICE/OUTPA TIENT VISIT, [facility], [address] [place] [address], [address], [place] tel:[phone] [facility] Cough (chief complaint) Influenza 2 7 Annalisa Funes. [address] [place] [address], [address], [place]. tel:[phone] PREV VISIT, [facility], AGE 12-17 [facility], [address] [place] [address], [address], [place] tel:[phone] [facility] shot/sports phys. (chief complaint) Encounter for examination for participation in sport 7 Erica Aimee. [address] [place] [address], [address], [place]. tel:[phone] OFFICE/OUTPA TIENT VISIT, [facility], [address] [place] [address], [address], [place] tel:[phone] [facility] Sore throat (chief complaint) Left otitis media, unspecified chronicity, unspecified otitis media type 0 7 Corrina Yecenia. [address] [place], [address], [place]. tel:[phone] OFFICE/OUTPA TIENT VISIT, [facility], [address] [place] [address], [address], [place] tel:[phone] [facility] Sore throat (chief complaint) Otitis media, unspecified, left ear 9201 6 Corrina Yecenia. [address] [place], [address], [place]. tel:[phone] [facility], [address] [place] [address], [address], [place] tel:[phone] [facility] sports physical (chief complaint) Sports physical exam 6 Ronaldo Edwards. [address] [place] [address], [facility], [place]. tel:[phone] OFFICE/OUTPA TIENT VISIT, [facility], [address] [place] [address], [facility], tel:[phone] [facility] TOE INJURY (chief complaint) Ingrown nailIrritant contact dermatitis due to plants, except food 6 Edward Atwood. [address] [place] [address], [facility], [place]. tel:[phone] OFFICE/OUTPA TIENT VISIT, [facility], [address] [place] [address], [facility], tel:[phone] [facility] Cold symptoms (chief complaint) AnemiaAcute upper respiratory infection, unspecified 6 Edward Atwood. [address] [place] [address], [facility], [place]. tel:[phone] OFFICE/OUTPA TIENT VISIT, [facility], [address] [place] [address], [facility], [place] tel: [phone] [facility] Sore throat (chief complaint) Sore throat 5 Salbador Almaguer. [address] [place], [address]. tel:[phone] OFFICE/OUTPA TIENT VISIT, [facility], [address] [place] [address], [facility], [place] tel: [phone] [facility] Sports PE (chief complaint) General medical exam for sports competition 5 Ronaldo Edwards. [address] [place] [address], [facility], [place]. tel:[phone] OFFICE/OUTPA TIENT VISIT, [facility], [address] [place] [address], [facility], [place] tel:[phone] [facility] ring worm (chief complaint) Tinea corporisAller gic rhinitis 5 Ronaldo Edwards. [address] [place] [address], [facility], . tel:[phone] OFFICE/OUTPA TIENT VISIT, [facility], [address] [place] [address], [facility], tel: [phone] [facility] rash (chief complaint) ImpetigoTinea corporis Feb-2 3 5 No Information OFFICE/OUTPA TIENT VISIT, [facility], [address] [place] [address], [facility], tel: [phone] [facility] Cold symptoms (chief complaint) URI, acute 6 5 No Information OFFICE/OUTPA TIENT VISIT, [facility], [address] [place] [address], [facility], tel: [phone] [facility] Cough (chief complaint)F ever (chief complaint) URI, acuteAllergic rhinitis Jul-0 4 Erica Aimee. [address] [place] [address], [facility], . tel:[phone] OFFICE/OUTPA TIENT VISIT, [facility], [address] [place] [address], [facility], tel: [phone] [facility] SORE THROAT (chief complaint) URI, acute 4 Erica Aimee. [address] [place] [address], [facility], . tel:[phone] OFFICE/OUTPA TIENT VISIT, [facility], [address] [place] [address], [facility], tel: [phone] [facility] COLD SYMPTOMS (chief complaint) Bronchitis, AcuteAcute maxillary sinusitis 4 Longmeyer Elizabeth. [address] [place] [address], [place]. tel:[phone] OFFICE/OUTPA TIENT VISIT, [facility], [address] [place] [address], [facility], tel:[phone] [facility] cough (chief complaint) Bronchitis, Acute 3 No Information OFFICE/OUTPA TIENT VISIT, [facility], [address] [place] [address], [facility], tel:[phone] [facility] wheezing (peds) (chief complaint)c ough (chief complaint)c old symptoms (chief complaint) Allergy, unspecified, not elsewhere classifiedUpp er Respiratory Infection, AcuteRight otitis media [address], [facility], . tel:[phone] Family History Family Member Type Diagnosis Age [...] egistry Payers Payer name Insurance type Covered alliance party ID Authoriza tion(s) [facility] [id number] Social History Type Description Quantity Date Captured [...] headache. Mild nausea. He has been taking asib-ffn-qohkxjj Advil. Reason For Referral Reason For Referral [...] Future Order: Lab Order RAPID ST REP ([id number]), Sent on: Sent History Of Present Illness [...] headache. Mild nausea. He has been taking qcak-prr-bmsiwlu Advil. SORE THROAT HPI Patient states f [...] skin lesions. EST CARE PT PRESENTS TO [facility].PT STATES THAT HE HAS A KNOT JUST [...] took place participating in physical education at [employer] [facility]. The incident occurred about 12:30PM today. Pt [...] of asthma. shot/sports phys. pt presnts elizabeth locwkood for school physicalThe patient presents for his [...] Infor vicky Rest and increase fl uid xvljitTtka-vqf-zdsbjpt Tylenol or Advil for fever reductionStart Augmentin 875 mg twice a day for 10 daysFollow-up in 5 to 7 days if no improvement or symptoms worsen Related to Acute pharyngitis Check CBC, CMPSet up U/S of lymph Nodes at [facility] anything suspicious, will send for bxOTC Rodney Nasal [place] Related to Epistaxis ResolvedF/U as neede dNo labs needed at this time Related to Chest wall discomfort Continue to monitor Related to E nlarged lymph nodes, unspecified CXR- IS NEG Related to Chest wall discomfort AVOID VAPING- TAKE T YLENOL/IBUPROFEN FOR PAIN Related to Chest wall discomfort OBSERVE FOR WORSENIN G OR PERSISTENT SYMPTOMS Related to Chest wall discomfort Will just monitor fo r now. If enlarged or any new lymph nodes enlarge, we will check CBC and set up U/S. Related to Enlarged lymph nodes, unspecified Educated that antibi otics are not prescribed for viral infections. Related to Acute upper respiratory infection, unspecified Increase fluids Related to Acute upper [...] unspecified [facility] Related to Acute upper respiratory infection, unspecified continue with abx gt ts as prescribed in the ER Related to Foreign body in ear, unspecified ear, subsequent encounter tylenol/motrin as needed Related to Foreign body in ear, unspecified ear, subsequent encounter Follow up in one wee k sooner if symptoms persist Related to Foreign body in ear, unspecified ear, subsequent encounter Observe for worsenin g signs and symptoms Related to SNIDER (dyspnea on exertion) Use medications as i nstructed. Observe for side effect Related to SNIDER (dyspnea on exertion) Increase fluid intak e, rest, antipyretics for fever Related to SNIDER (dyspnea on exertion) Observe for s/s of e mergency. Go to ER if this occurs Related to Painful breathing Mucinex DM + Sudafed for cough relief, mucous, and congestion Related to Acute sinusitis Continue allergy tab let and nasal spray Related to Acute sinusitis Tylenol or Ibuprofen for fever or pain Related to Acute sinusitis Recommend gargling w ith warm salt water [...] symptoms. Related to Acute pharyngitis, unspecified etiology Viral pharyngitis- P francisco is to treat [...] symptoms. Related to Acute maxillary sinusitis, unspecified f/u with pmd. Related to Acute maxillary sinusitis, unspecified Recommend gargling, take medication as prescribed , f/u with PMD Related to Acute pharyngitis, unspecified etiology Patient instructed o n use of saline sprays.take mediation as prescribed Related to Acute maxillary sinusitis, unspecified Recommend gargling w ith warm salt water Related to Acute pharyngitis, unspecified etiology Acetaminophen or ibu profen for fever/ pain Related to Acute pharyngitis, unspecified etiology [id number]||2025-02-04 13:20:00|US_ITS|[employer]|Imaging|[id number]|"EXAMINATION: US scrotum doppler DATE: 02/04/2025 13:08 INDICATION: Testicular pain TECHNIQUE: Sonographic evaluation of the scrotum was performed assessing grayscale appearance and col or Doppler flow. Spectral Doppler evaluation was also performed. COMPARISON: None. FINDINGS: RIGHT TESTICLE: The right testicle measures 4.0 x 2.4 x 3.0 cm. Arterial and venous flow are present. No right-sided hydrocele is present. RIGHT EPIDIDYMIS: The right epididymis is unremarkable in echogenicity and size and measures 10 x 15 x 11 mm. Prominent vasculature with Valsalva. Pre-Valsalva measurement less than 3 mm. LEFT TESTICLE: The left testicle measures 4.1 x 2.5 x 3.8 cm. Increased vascularity is detected within the testicle. No left-sided hydrocele is present. A striated appearance of the left testicle is detected on static imaging, suggesting orchitis (most l ikely). This appearance has also been associated with fibrosis, and non-Hodgkin's lymphoma, both considered l ess likely. LEFT EPIDIDYMIS: The left epididymis demonstrates increased vascularity and measures 8 x 11 x 8 mm. An anechoic avascular focus is detected within the left epididymal head with increased through transm ission measuring 5 x 6 x 5 mm, consistent with an epididymal head cyst. Dilated tubular structures are detected to the left of midline within the scrotum, superior to the te sticle without increased vascularity to suggest a varicocele. This focus may represent tubular ectasi a of the rete testes (although this entity typically occurs within the testicle), versus a spermatoce le. Prominent vasculature with Valsalva. Pre-Valsalva measurement less than 3 mm. IMPRESSION: Findings suggesting left-sided epididymoorchitis, possibly with ectasia of the rete testes. Reviewed, dictated and finalized at location A. IMPRESSION: Findings suggesting left-sided epididymoorchitis, possibly with ectasia of the rete testes. "
[2025-02-04] MEDS: cefTRIAXone 1 GM VIAL 0.5 GM IM (14:40)
[2025-02-04] MEDS: DOXYCYCLINE HYCLATE 100 MG TABLET PO (14:41)
[2025-02-04] MEDS: LIDOCAINE 1% LOCAL INJ 10 ML VIAL (14:41)
--- NOTE | 2025-02-04 15:09 | ED.GENADULT ---
HPI - General Adult General Chief complaint: Urogenital-Male Stated complaint: Lower abd pain-radiates to scrotum/lower back Time Seen by Provider: 02/04/25 13:57 History of Present Illness HPI narrative: 24-year-old male presenting to the emergency department for evaluation for left-sided testicular pain that started today. Patient does have prior history of varicocele. Patient denies any pain or injury. Patient denies any concern for STIs and patient denies any pain with urination or penile discharge. Related Data Allergies Allergy/AdvReac Type Severity Reaction Status Date / Time No Known Allergies Allergy Verified 02/04/25 11:49 Review of Systems Review of Systems: All systems reviewed & are unremarkable except as noted in HPI and below Exam Narrative: APPEARANCE: Well appearing, no pain, no distress, well-nourished. HEAD: normocephalic, atraumatic. EYES: PERRLA/EOMI, conjunctivae clear. NOSE: Normal no drainage EARS:TMS clear with good light reflex. THROAT: Pharynx clear, no exudate. NECK: Supple. No adenopathy, no masses. RESPIRATORY: Airway patent, respirations nonlabored. Clear to auscultation bilaterally, no rales, rhonchi, wheezing. CARDIOVASCULAR: Regular rate and rhythm without murmurs rubs or gallops. ABDOMINAL: Soft, nontender, nondistended, normal bowel sounds MUSCULOSKELETAL: Moves all extremities. Strength/ROM intact, No edema, No calf tenderness. NEURO: Alert. Cranial nerves II through XII intact. Good gait. Good coordination SKIN: Warm, dry. Normal Color Testicular exam: Low running left testicle with no evidence cellulitis no rash and no edema Course Vital Signs Vital signs: Vital Signs Temperature 97.6 F 02/04/25 12:06 Pulse Rate 86 02/04/25 12:06 Respiratory Rate 16 02/04/25 12:06 Blood Pressure 138/96 H 02/04/25 12:06 Pulse Oximetry 100 02/04/25 12:06 Temperature 97.8 F 02/04/25 15:31 Pulse Rate 76 02/04/25 15:31 Respiratory Rate 16 02/04/25 15:31 Blood Pressure 126/74 02/04/25 15:31 Pulse Oximetry 100 02/04/25 15:31 Medical Decision Making MDM Narrative Medical decision making narrative: 24-year-old male present to the emergency department for evaluation for left-sided testicular pain. UA was negative for infection. GC chlamydia tests are pending and patient is not want to wait for these results. Ultrasound does show evidence of epididymo-orchitis. Patient was treated with IM Rocephin started on 14 days of doxycycline. Patient was encouraged of close follow-up with Urology. Patient was also told to follow his results on the [facility] portal. All questions concerns were addressed prior Differential Diagnosis Differential Diagnosis: Epididymo-orchitis, torsion, gonorrhea, chlamydia Vital Signs Vital Signs: Vital Signs Temperature 97.6 F 02/04/25 12:06 Pulse Rate 86 02/04/25 12:06 Respiratory Rate 16 02/04/25 12:06 Blood Pressure 138/96 H 02/04/25 12:06 Pulse Oximetry 100 02/04/25 12:06 Temperature 97.8 F 02/04/25 15:31 Pulse Rate 76 02/04/25 15:31 Respiratory Rate 16 02/04/25 15:31 Blood Pressure 126/74 02/04/25 15:31 Pulse Oximetry 100 02/04/25 15:31 Lab Data Lab results reviewed: Yes I reviewed the patient's lab results. Labs: Lab Results 02/04/25 Range/Units 12:34 Urine Color Yellow (Yellow) Urine Appearance Turbid H (Clear) Urine pH 8.0 (5.0-9.0) Ur Specific [place] 1.016 (1.001-1.035) Urine Protein Negative (Negative) mg/dL Urine Glucose (UA) Negative (Negative) mg/dL Urine Ketones Negative (Negative) mg/dL Ur Blood (Man) Negative (Negative) Urine Nitrate Negative (Negative) Urine Bilirubin Negative (Negative) Urine Urobilinogen 0.2 (<2.0) mg/dL Leukocyte Esterase Rfl Negative (Negative) CRISTINA/UL Urine RBC 0-2 (0-2) /hpf Urine WBC 0-5 (0-3) /hpf Ur Squamous Epith Cells None seen (Few) /hpf Urine Bacteria None seen /hpf Urine Casts 0-2 C. trachomatis (PCR) Not detected (NOT DETECTE) N. gonorrhoeae (PCR) Not detected (NOT DETECTE) Imaging Data Radiologist's impression: Impressions Scrotum Ultrasound 02/04/25 13:20 IMPRESSION: Findings suggesting left-sided epididymoorchitis, possibly with ectasia of the rete testes. Discharge Plan Discharge Clinical Impression: Pain in left testicle, Epididymo-orchitis Patient Disposition: Home Condition: Stable Instructions: Antibiotic Form, Epididymo-Orchitis (ED) Additional Instructions: Antibiotics as directed until completed. Tylenol and ibuprofen for pain control. Have close follow-up with Urology. If you have any worsening symptoms then please call or return to the emergency department. Check on your GC chlamydia results on the [facility] portal Patient Language: Congolese Prescriptions: New doxycycline monohydrate 100 mg capsule 100 mg PO BID 14 Days Qty: 28 0RF No Action cyclobenzaprine 10 mg tablet 10 mg PO TID PRN (Reason: muscle spasm) Qty: 14 0RF Follow-up/Referrals: Jim Bullard MD [Physician] - UNKNOWN,DOCTOR [Primary Care Provider] -
[2025-02-04 15:31] VITALS: BP 126/74; PULSE 76; RESP 16; TEMP 36.6; O2SAT 100
[2025-02-04 17:15] LABS: Chlamydia trachomatis NOT DETECTED (NOT DETECTE); Neisseria gonorrhoeae PCR NOT DETECTED (NOT DETECTE)
== END 2025-02-04 15:34 | disposition home or self-care (01) ==
PROVIDERS: Student in an Organized Health Care Education/Training Program; Emergency Provider Emergency Medicine
DX: N45.3 Epididymo-orchitis (principal); N50.812 Left testicular pain
CPT/HCPCS: 76870; 81001; 87491; 87591; 93976; 96372; 99284; A9270; J0696; J2003